=== PATIENT | male | born 1995 | race Caucasian/White ===

== ENCOUNTER 2017-08-13 19:35 | Emergency (ER) | payer BC ==
[2017-08-13 19:44] VITALS: BP 127/77
[2017-08-13] MEDS ORDERED: Ketorolac INJ* 60 MG/2 ML VIAL IM ONE (20:30)
--- NOTE | 2017-08-13 20:36 | UC ---
Back Pain HPI - HPI Summary HPI Summary: 22 y/o male presents to the urgent care c/o severe left side lower back pain radiating to his LF hip after lifting a 5 gallon of water this morning. Pt went to [facility] at 1200 today and Rx Flexeril and Naproxen. He has taking medications w/o relief of symptoms. Pain is sharp, constant and is 8 /10 with movement. Pt denies numbness and tingling over the lower extremities, saddle anesthesia, urinary or fecal incontinence, fever, SOB, chest pain, N/V/D, - History of Current Complaint Chief Complaint: UCBackPain Stated Complaint: BACK PAIN Time Seen by Provider: 08/13/17 20:21 Hx Obtained From: Patient Onset/Duration: Sudden Onset, Lasting Hours, Still Present Timing: Constant Severity Initially: Severe Severity Currently: Severe Pain Intensity: 8 Pain Scale Used: 0-10 Numeric Back Pain: Is Discrete @ - lower back radiating to the left hip Aggravating: Movement, Bending Alleviating: Rest Associated Signs And Symptoms: Positive: Pain with Weight Bearing. Negative: Swelling, Redness, Bruising, Fever, Weakness, Numbness, Tingling, Abdominal Pain , Flank Pain, Bladder Incontinence, Bowel Incontinence - Risk Factors AAA Risk Factors: Negative TAD Risk Factors: Negative Cauda Equina Risk Factors: Negative Epidural Abscess Risk Factors: Negative - Allergies/Home Medications Allergies/Adverse Reactions: Allergies Allergy/AdvReac Type Severity Reaction Status Date / Time No Known Allergies Allergy Verified 08/13/17 19:44 Home Medications: Home Medications Cyclobenzaprine TAB* [Flexeril 10 MG TAB*] 10 mg PO TID PRN 08/13/17 [History Confirmed 08/13/17] Naproxen TAB* [Naprosyn 250 mg TAB*] 500 mg PO Q8H PRN 08/13/17 [History Confirmed 08/13/17] PMH/Surg Hx/FS Hx/Imm Hx Previously Healthy: Yes - Pt denies PMHX - Surgical History Surgical History: None - Family History Known Family History: Positive: None - denies FMHX - Social History Occupation: Employed Full-time Lives: With Family Alcohol Use: Rare Substance Use Type: None Smoking Status (MU): Never Smoked Tobacco Review of Systems Constitutional: Negative Skin: Negative Eyes: Negative ENT: Negative Respiratory: Negative Cardiovascular: Negative Gastrointestinal: Negative Genitourinary: Negative Motor: Negative Neurovascular: Negative Musculoskeletal: Other: - Lower back pain radianting to the left hip Neurological: Negative Psychological: Negative Is Patient Immunocompromised?: No All Other Systems Reviewed And Are Negative: Yes Physical Exam Triage Information Reviewed: Yes Appearance: Well-Appearing, Well-Nourished, Pain Distress Vital Signs: Initial Vital Signs Temp 98.8 F 08/13/17 19:39 Pulse 93 08/13/17 19:39 Resp 14 08/13/17 19:39 BP 127/77 08/13/17 19:39 Pulse Ox 100 08/13/17 19:39 Vital Signs Reviewed: Yes Eye Exam: Normal Eyes: Positive: Conjunctiva Clear - PERRLA, EOMI ENT Exam: Normal ENT: Positive: Normal ENT inspection, Hearing grossly normal, Pharynx normal, TMs normal Neck exam: Normal Neck: Positive: Supple, Nontender, No Lymphadenopathy Respiratory Exam: Normal Respiratory: Positive: Chest non-tender, Lungs clear, Normal breath sounds, No respiratory distress Cardiovascular Exam: Normal Cardiovascular: Positive: RRR, No Murmur, Pulses Normal, Brisk Capillary Refill Abdominal Exam: Normal Abdomen Description: Positive: Nontender, No Organomegaly, Soft. Negative: CVA Tenderness (R), CVA Tenderness (L) Bowel Sounds: Positive: Present Neurological Exam: Normal Psychological Exam: Normal Skin Exam: Normal - BACK: Patient walked into the urgent care room with ambulation, No signs of limping, antalgic, able to bear weight. No signs of trauma, No masses palpated. Point tenderness at the level of L5-S1 and LF paraspinal muscle tenderness at the same level, No CVAT, no flank ecchymosis . No sacroiliac notch tenderness, No saddle anesthesia.ROM: limited flexion/ extension/ lateral bending and rotation due to pain, unable to do Straight Leg Raise due to pain. Pt unable to sit due to pain. Patellar reflexes: brisk, symmetric Muscle strength lower extremities. Dorsiflexion/ plantar flexion of ankles. Heel/ toe walk. Lower extremities: Femoral, popliteal, posterior tibial , and dorsalis pedis pulses WNL. Pt decline JULISSA. Back Pain Course/Dx - Course Course Of Treatment: 22 y/o male presents to the urgent care c/o severe left side lower back pain radiating to his LF hip after lifting a 5 gallon of water this morning. Pt went to [facility] at 1200 today and Rx Flexeril and Naproxen. He has taking medications w/o relief of symptoms. Pain is sharp, constant and is 8/10 with movement. Pt denies numbness and tingling over the lower extremities, saddle anesthesia, urinary or fecal incontinence, fever, SOB , chest pain, N/V/D. Hx obtained. PE performed. Lumbar spine X-ray ordered. Impression: No acute bony or soft tissue abnormalities observed. Pt given Tordol IM inj and prednisone PO to allevetiate symptoms. Pt tolerated well medications and Rx Predisone PO and advised to continue taking Naproxen PO and Flexeril PO. Pt advised f/u with Orthopedic in 1 week if not improvement of symptoms for further evaluation and treatment. Pt understood and agreed and left the clinic ambulating and feeling better. A&OX3 - Differential Dx/Diagnosis Differential Diagnosis/HQI/PQRI: Cauda Equina Syndrome, Compressive Cord Syndrome, Fracture, Herniated Disc, Strain, Sprain Provider Diagnoses: 1- Acute lower back pain. 2- Back spasm Discharge - Discharge Plan Condition: Stable Disposition: HOME Prescriptions: predniSONE TAB* [Deltasone TAB*] 20 mg PO DAILY #8 tab Patient Education Materials: Acute Low Back Pain (ED), Muscle Spasm (ED) Referrals: [facility] [Outside] - 1 Week No Primary Care Phys,NOPCP [Primary Care Provider] - Anne Morris MD [Medical Doctor] - 1 Week Additional Instructions: 1-Please continue taking Naproxen PO and flexeril Rx today the the other urgent care as directed to alleviate pain and swelling. 2-Please take Prednisone PO as directed to alleviate symptoms. wear a back support. 3- Please f/u with Orthopedic in 1 week is not improvement of symptoms for further evaluation and treatment.
--- NOTE | 2017-08-13 20:55 | RAD ---
INDICATION: Acute back pain COMPARISON: None TECHNIQUE: Routine PA, lateral, and oblique imaging was performed . FINDINGS: Bones: There are no acute bony findings. There are no significant osteoarthritic findings. Alignment: Normal Disc spaces: The disc spaces are well-maintained Soft tissues: There are no soft tissue abnormalities. IMPRESSION: NEGATIVE EXAMINATION.
[2017-08-13] MEDS ORDERED: predniSONE TAB* 20 MG PO ONE (21:02)
== END 2017-08-13 21:20 | disposition home or self-care (01) ==
LOC: UCEAST 19:35
DX: M54.5 Low back pain (principal); M62.830 Muscle spasm of back
CPT/HCPCS: 72110; 90472; 96372; 99202; G0463; J1885; J7512